=== PATIENT | male | born 1950 | race African-American/Black ===

== ENCOUNTER 2017-04-12 09:13 | Emergency (ER) | payer MEDICARE ==
[~2017-04-12] VITALS: Ht 185.4 cm; Wt 140.0 kg
[~2017-04-12 09:13] MED LIST: AFEDITAB60 MG PO; ALLOPURINOL300 MG PO; BAYER ASPIRIN E81 MG PO; C 250 PO; DIOVAN320 MG PO; FLEXERIL PO; HYDROCHLORO25 MG/TAB PO; INDOCIN SR75 MG OR; INDOCIN25 MG OR; IRON45 MG PO; LIPITOR20 MG OR; LIPITOR40 MG PO; LOSARTAN POTAS100 MG PO; MAXZIDE-2537.5 MG/TA PO; NAPROSYN500 MG OR; NAPROSYN500 MG PO; NIFEDIPINE60 MG PO; PERCOCET 5/325M1 TAB OR; POT CHLORIDE10 ME1 OR; SIMVASTATIN40 MG OR; TRIAMT/HCTZ1 CAP OR; ULTRAM50 M1 PO; VITAMIN D31000 UNI1 PO
[2017-04-12] MEDS ORDERED: MAXZIDE-2537.5 MG/TA PO (09:33)
[2017-04-12] MEDS ORDERED: DIOVAN320 MG PO (09:34)
[2017-04-12] MEDS ORDERED: NIFEDIPINE90 MG PO (09:35)
[2017-04-12 10:14] LABS: HEMOGLOBIN 12.7 g/dl (14.0-18.0); IMMATURE GRANULOCYTES 0.4 % (0.0-1.0); MEAN CELL VOLUME 82.4 fL CALC (80.0-100.0); MEAN CORPUSCULAR HGB 27.5 pG CALC (26.0-32.0); MEAN CORPUSCULAR HGB CONC 33.4 g/L CALC (32.0-36.0); NEUT# 5.52 thou/uL (1.82-7.42); RED BLOOD COUNT 4.61 mill/uL (4.70-6.10); RED CELL DISTRI WIDTH 14.6 % (11.5-15.5); URINE BILIRUBIN - DIPSTICK NEGATIVE (NEGATIVE); URINE BLOOD DIPSTICK SMALL (NEGATIVE); URINE CLARITY CLEAR; URINE COLOR YELLOW; URINE GLUCOSE - DIPSTICK NEGATIVE (NEGATIVE); URINE KETONE NEGATIVE (NEGATIVE); URINE LEUK ESTERASE NEGATIVE (NEGATIVE); URINE NITRITE - DIPSTICK NEGATIVE (Negative); URINE PH 5.5 (4.5-8.0); URINE PROTEIN - DIPSTICK NEGATIVE (NEG-TRACE); URINE SPECIFIC GRAVITY <=1.005; URINE UROBILINOGEN - DIPSTICK 0.2 E.U./dL (0.2)
[2017-04-12 10:26] LABS: ALBUMIN 4.4 g/dL (3.2-5.0); ALKALINE PHOSPHATASE 67 u/l (38-126); ANION GAP 19 (6-22 (CALC)); BILIRUBIN, TOTAL 0.6 mg/dL (0.0-1.4); BUN 27 mg/dL (8-23); BUN/CREATININE RATIO 15 (12-20 (CALC)); CALCIUM 9.6 mg/dL (8.4-10.2); CARBON DIOXIDE 19 mmol/l (22-30); CHLORIDE 104 mmol/l (95-108); CREATININE 1.8 mg/dL (0.7-1.3); GFR 38 ML/MIN (>=60 (CALC)); GFR FOR AFR.AMER. 45 ML/MIN (>=60 (CALC)); GLUCOSE 110 mg/dL (82-115); POTASSIUM 4.2 mmol/l (3.5-5.1); SGOT/AST 23 u/l (19-48); SGPT/ALT 32 u/l (11-66); SODIUM 138 mmol/l (137-146); TOTAL PROTEIN 8.1 g/dL (6.3-8.2)
[2017-04-12 10:38] LABS: MYOGLOBIN 102 ng/mL (0 - 121)
[2017-04-12 10:43] LABS: URINE RBC 0-2 RBC/hpf (0-5)
[2017-04-12 11:35] VITALS: BP 118/63
[2017-04-12] MEDS ORDERED: XANAX0.25 MG PO (11:36)
== END 2017-04-12 11:55 | disposition home or self-care (01) ==
LOC: ED 09:13
PROVIDERS: Emergency Medicine
DX: F43.8 Other reactions to severe stress (principal); I10 Essential (primary) hypertension; E78.5 Hyperlipidemia, unspecified; M19.90 Unspecified osteoarthritis, unspecified site; M10.9 Gout, unspecified; R06.02 Shortness of breath; R42 Dizziness and giddiness; Z63.4 Disappearance and death of family member

== ENCOUNTER 2017-06-13 06:00 | Emergency (ER) | payer MEDICARE ==
[~2017-06-13] VITALS: Ht 185.4 cm; Wt 134.0 kg
[~2017-06-13 06:00] MED LIST changes: +NIFEDIPINE90 MG PO; +XANAX0.25 MG PO
[2017-06-13] MEDS ORDERED: FLEXERIL PO (06:37)
[2017-06-13] MEDS ORDERED: PREDNISONE50 MG PO (06:37)
[2017-06-13] MEDS ORDERED: PERCOCET 5/325M1 TAB PO (06:37)
[2017-06-13 07:36] LABS: HEMATOCRIT 36.9 % (39.0-50.0); HEMOGLOBIN 12.1 g/dl (14.0-18.0); IMMATURE GRANULOCYTES 0.2 % (0.0-1.0); MEAN CELL VOLUME 83.9 fL CALC (80.0-100.0); MEAN CORPUSCULAR HGB 27.5 pG CALC (26.0-32.0); MEAN CORPUSCULAR HGB CONC 32.8 g/L CALC (32.0-36.0); NEUT# 5.25 thou/uL (1.82-7.42); RED BLOOD COUNT 4.4 mill/uL (4.70-6.10); RED CELL DISTRI WIDTH 14.7 % (11.5-15.5)
[2017-06-13 07:42] LABS: ALBUMIN 4.6 g/dL (3.2-5.0); BILIRUBIN, TOTAL 0.5 mg/dL (0.0-1.4); CALCIUM 9.5 mg/dL (8.4-10.2); CREATININE 1.9 mg/dL (0.7-1.3); POTASSIUM 3.9 mmol/l (3.5-5.1); TOTAL PROTEIN 8.5 g/dL (6.3-8.2)
[2017-06-13 08:11] LABS: URINE BILIRUBIN - DIPSTICK NEGATIVE (NEGATIVE); URINE BLOOD DIPSTICK TRACE-INTACT (NEGATIVE); URINE CLARITY CLEAR; URINE COLOR YELLOW; URINE GLUCOSE - DIPSTICK NEGATIVE (NEGATIVE); URINE KETONE NEGATIVE (NEGATIVE); URINE LEUK ESTERASE NEGATIVE (Negative); URINE NITRITE - DIPSTICK NEGATIVE (Negative); URINE PH 5.5 (4.5-8.0); URINE PROTEIN - DIPSTICK NEGATIVE (NEG-TRACE); URINE UROBILINOGEN - DIPSTICK 0.2 E.U./dL (0.2)
[2017-06-13 09:29] VITALS: BP 137/65
== END 2017-06-13 09:40 | disposition home or self-care (01) ==
LOC: ED 06:00
PROVIDERS: Emergency Medicine
DX: M54.41 Lumbago with sciatica, right side (principal); M54.16 Radiculopathy, lumbar region; M25.561 Pain in right knee; M54.5 Low back pain; M79.604 Pain in right leg; I10 Essential (primary) hypertension; E78.5 Hyperlipidemia, unspecified

== ENCOUNTER 2019-04-14 05:16 | Emergency (ER) | payer MEDICARE ==
[~2019-04-14] VITALS: Ht 185.4 cm; Wt 130.0 kg
[~2019-04-14 05:16] MED LIST changes: +PERCOCET 5/325M1 TAB PO; +PREDNISONE50 MG PO
[2019-04-14] MEDS ORDERED: ACETIC ACID2 % OT (05:38)
[2019-04-14] MEDS ORDERED: AMOXICILLIN500 MG PO (05:38)
[2019-04-14 05:42] VITALS: BP 160/90
== END 2019-04-14 05:58 | disposition home or self-care (01) ==
LOC: ED 05:16
DX: H66.92 Otitis media, unspecified, left ear (principal); H60.92 Unspecified otitis externa, left ear; H92.02 Otalgia, left ear

== ENCOUNTER 2019-04-23 16:27 | Emergency (ER) | payer MEDICARE ==
[~2019-04-23] VITALS: Ht 185.4 cm; Wt 120.0 kg
[~2019-04-23 16:27] MED LIST changes: +ACETIC ACID2 % OT; +AMOXICILLIN500 MG PO
[2019-04-23 17:02] VITALS: BP 167/84
== END 2019-04-23 17:02 | disposition home or self-care (01) ==
LOC: ED 16:27
PROC: 3E1B78Z Irrigation of Ear using Irrigating Substance, Via Natural or Artificial Opening (ICD-10-PCS; principal; 2019-04-23)
DX: H61.22 Impacted cerumen, left ear (principal)